=== PATIENT | male | born 1945 | race Two or more races ===

== ENCOUNTER 2024-10-18 13:18 | Emergency (ER) | payer MEDICARE, SELFPAY ==
[2024-10-18 13:19] VITALS: BP 139/76
--- NOTE | 2024-10-18 14:24 | ED.MUSCINJ ---
HPI-Injury
General
Chief Complaint: Musculo-Skeletal Complaint
Source: patient
Exam Limitations: none
Time Seen by Provider: 10/18/24 14:03
History of Present Illness-Injury
Initial Injury comments:
79-year-old male presents complaining of right knee pain starting today. Dog hit him from the inside part of his knee and he complains of pain in this spot. He notes pain with bearing weight and moving. No prior injury to the knee. No other
complaints at this time
Phy Exam
Physical Exam
Physical Exam:
General: Well-appearing male no acute respiratory distress
HEENT: Normocephalic atraumatic
Musculoskeletal exam: Right knee without effusion. He is tender over the medial aspect of the knee. Increased pain with valgus stress. Posterior is nontender no effusion able to straight leg raise.
Skin is intact without laceration
Injury Course
Orders/Labs/Results
Orders:
Orders
10/18/24 13:23
Knee, Right 4 or More Views [CR Knee- Right 4 Or More View*] Urgent
Comment:
Reason For Exam: injury
10/18/24 14:24
Knee Immobilizer Right-Treatme ONCE
MDM/Problems Addressed
Differential Diagnosis Includes:
Right knee pain. Consider contusion versus strain versus fracture
X-rays of the right knee are negative for acute bony abnormality. Patient examines like an MCL sprain. Will place in knee immobilizer
*Critical Care Note
Total Time (30-74mins, 75-104mins- exclusive of procedures): Not Applicable
ED Attending Note
-
Portions of this chart may have been created with voice recognition software.� Occasional wrong word or��sound alike� substitutions may have occurred due to the inherent limitations of voice recognition software.
Discharge Plan
Departure
Patient Disposition: Home (Routine Discharge)
Date of Disposition: 10/18/24
Time of Disposition: 14:43
Patient with high blood pressure during this ER visit?: No
Discharge Problem:
Knee sprain
Instructions: Muscle and Bone Pain (DC)
Referrals:
Rashaad Salazar MD [Active] -
UNKNOWN - PT DOES,NOT KNOW [Family Provider] -
Activity Restrictions/Additional Instructions:
Use brace for support and ambulating. Use ibuprofen or Tylenol for pain. Follow-up with orthopedics for further evaluation
Interventions
Interventions:
*Risk Screen - Suicide Last Done: 10/18/24 13:19
*Neglect/Abuse Screening Last Done: 10/18/24 13:19
Discharge Date and Time
Print Language: PERUVIAN
== END 2024-10-18 15:28 | disposition home or self-care (01) ==
LOC: EMR 13:18
PROVIDERS: EMERGENCY PHYSICIAN Emergency Medicine
DX: S83.91XA Sprain of unspecified site of right knee, initial encounter (principal); W54.1XXA Struck by dog, initial encounter
CPT/HCPCS: 29505; 99283; 73564